=== PATIENT | female | born 1950 | race Asian ===

== ENCOUNTER 2018-06-03 16:35 | Emergency (ER) | payer MEDICARE ==
[2018-06-03 17:06] VITALS: BP 139/107
--- NOTE | 2018-06-03 17:08 | ER Report ---
History and Physical Time Seen By MD: 17:09 HPI/ROS CHIEF COMPLAINT: Fall, rib pain HISTORY OF PRESENT ILLNESS: 68-year-old female patient presents to the emergency room with complaint of a fall this past weekend with pain to the right ribs. Patient states that she was working in her office and was walking down the hallway when she slipped and fell hitting a heater in the hallway. Patient states she has a small cut her forehead as well as bruising to her face. She states initially the bruising to the face was the worse. However Thursday night she had significant pain to the ribs. States she was unable to sleep, she did take 2 Tylenol which seemed to help. Patient states she's been taking Tylenol since then, however the pain has not resolved. REVIEW OF SYSTEMS: Respiratory: No cough, no dyspnea. Cardiovascular: No chest pain, no palpitations. Gastrointestinal: No vomiting, no abdominal pain. Musculoskeletal: No back pain. Allergies: Coded Allergies: No Known Drug Allergies (Unverified , 06/03/18) Home Meds No Active Prescriptions or Reported Meds Past Medical/Surgical History Patient has a past medical history of breast cancer. Patient has a surgical history mastectomy. Reviewed Nurses Notes: Yes Constitutional Vital Sign - Last 24 Hours 06/03/18 17:06 Temp 98.7 Pulse 83 Resp 12 B/P (MAP) 139/107 Pulse Ox 90 O2 Delivery Room Air Physical Exam General Appearance: The patient is alert, has no immediate need for airway protection and no current signs of toxicity. Respiratory: Chest is non tender, lungs are clear to auscultation. Patient is tender to the right side of the ribs Cardiac: regular rate and rhythm Gastrointestinal: Abdomen is soft and non tender, no masses, bowel sounds normal. Musculoskeletal: Neck: Neck is supple and non tender. Extremities have full range of motion and are non tender. Skin: No rashes or lesions. Patient has well-healed laceration to the right side of her forehead, she has bruising to both under eyes. DIFFERENTIAL DIAGNOSIS: After history and physical exam differential diagnosis was considered for fracture, contusion. Medical Decision Making EKG/Imaging Imaging CHEST PA AND LAT, RIBS RIGHT INDICATION: fall with rib pain COMPARISON: None available FINDINGS: Heart size within normal limits. There is no focal infiltrate or lobar consolidation. Lung volumes are hyperexpanded. Calcified granulomas noted within the right midlung. There is no pneumothorax or pleural effusion. There is a mildly displaced posterior seventh rib fracture on the right. There is a minimally displaced right anterior 10th rib fracture. IMPRESSION: 1. Mildly displaced posterior right seventh rib fracture and minimally displaced right anterior 10th rib fracture. There is no evidence of pneumothorax. 2. Pulmonary hyperexpansion consistent with COPD as well as old granulomatous disease. Report Dictated By: Lonnie Soto at 06/03/2018 5:46 PM Report E-Signed By: Lonnie Soto at 06/03/2018 5:50 PM ED Course/Re-evaluation ED Course Patient was medicated in exam room, history and physical were obtained. Differential diagnoses were considered. On examination lungs are clear, heart is regular, abdomen soft nontender. Patient does have tenderness to the right ribs. She also has bruising under both eyes as well as a small well-healed laceration to the right side of the forehead. There is no erythema noted. X-rays of the right ribs were done. It does show fractures of the right seventh and 10th rib. I discussed the findings with patient. We discussed using pain medication. Patient refused at this time. We will go ahead and discharge her home this time. She is follow-up with her primary care provider in the next week. Patient verbalized understanding and agreement with plan. Decision to Disposition Date: Jun 03, 2018 Decision to Disposition Time: 18:09 Depart Departure Latest Vital Signs Vital Signs Date Time Temp Pulse Resp B/P (MAP) Pulse Ox O2 Delivery O2 Flow Rate FiO2 06/03/18 17:06 98.7 83 12 139/107 90 Room Air Impression: Primary Impression: Multiple rib fractures Condition: Improved Disposition: HOME OR SELF-CARE New Scripts No Active Prescriptions or Reported Meds Patient Instructions: Rib Fracture (ED) Additional Instructions: Limit activity by pain. Ice the ribs 2-3 times a day for 20-30 minutes. Follow up with your primary care provider, call tomorrow to make an appointment. Return to the ER if condition worsens You may take Tylenol or Ibuprofen as needed for pain. Problem Qualifiers Primary Impression: Multiple rib fractures Encounter type: initial encounter Fracture type: closed Laterality: right Qualified Codes: S22.41XA - Multiple fractures of ribs, right side, initial encounter for closed fracture VARUN BINGHAM Jun 03, 2018 17:08
--- NOTE | 2018-06-03 17:53 | RADIOLOGY IMAGING REPORT ---
FACILITY: [facility] PATIENT NAME: Brice Caldwell : 1950 MR: [id number] V: [id number] EXAM DATE: ORDERING PHYSICIAN: VARUN BINGHAM TECHNOLOGIST: Location[place] [facility] [place] Patient: Brice Caldwell : 1950 Visit/Account:[id number] Date of Sevice: 06/03/2018 CHEST PA AND LAT, RIBS RIGHT INDICATION: fall with rib pain COMPARISON: None available FINDINGS: Heart size within normal limits. There is no focal infiltrate or lobar consolidation. Lung volumes are hyperexpanded. Calcified gra nulomas noted within the right midlung. There is no pneumothorax or pleural effusion. There is a mildly displaced posterior seventh rib fracture on the right. There is a minimally displa don right anterior 10th rib fracture. IMPRESSION: 1. Mildly displaced posterior right seventh rib fracture and minimally displaced right anterior 10th rib fracture. There is no evidence of pneumothorax. 2. Pulmonary hyperexpansion consistent with COPD as well as old granulomatous disease. Report Dictated By: Lonnie Soto at 06/03/2018 5:46 PM Report E-Signed By: Lonnie Soto at 06/03/2018 5:50 PM WSN:[email or web address]
--- NOTE | 2018-06-03 17:53 | RADIOLOGY IMAGING REPORT ---
FACILITY: [facility] [place] PATIENT NAME: Brice Caldwell : 1950 MR: [id number] V: [id number] EXAM DATE: ORDERING PHYSICIAN: VARUN BINGHAM TECHNOLOGIST: Location: [facility] Patient: Brice Caldwell : 1950 Visit/Account:[id number] Date of Sevice: 06/03/2018 CHEST PA AND LAT, RIBS RIGHT INDICATION: fall with rib pain COMPARISON: None available FINDINGS: Heart size within normal limits. There is no focal infiltrate or lobar consolidation. Lung volumes are hyperexpanded. Calcified gra nulomas noted within the right midlung. There is no pneumothorax or pleural effusion. There is a mildly displaced posterior seventh rib fracture on the right. There is a minimally displa don right anterior 10th rib fracture. IMPRESSION: 1. Mildly displaced posterior right seventh rib fracture and minimally displaced right anterior 10th rib fracture. There is no evidence of pneumothorax. 2. Pulmonary hyperexpansion consistent with COPD as well as old granulomatous disease. Report Dictated By: Lonnie Soto at 06/03/2018 5:46 PM Report E-Signed By: Lonnie Soto at 06/03/2018 5:50 PM WSN:[email or web address]
== END 2018-06-03 18:35 | disposition home or self-care (01) ==
LOC: ER 17:12
DX: S22.41XA Multiple fractures of ribs, right side, initial encounter for closed fracture (principal); W01.198A Fall on same level from slipping, tripping and stumbling with subsequent striking against other object, initial encounter
CPT/HCPCS: 71046; 71100; 99284